=== PATIENT | female | born 1960 ===

== ENCOUNTER 2025-04-28 11:14 | Outpatient (AMB) | payer MEDICAID, SELFPAY | END 2025-04-28 14:59 | disposition home or self-care (01) | LOC: HO.HMGAL 11:14 | PROVIDERS: PCP Internal Medicine; Visit Provider Registered Nurse Emergency | DX: J30.89 Other allergic rhinitis (principal) | CPT/HCPCS: 95117; 95165 ==

== ENCOUNTER 2025-05-26 11:10 | Outpatient (AMB) | payer MEDICARE, SELFPAY ==
--- OUTSIDE RECORDS SUMMARY | 2025-05-26 13:49 | XMS_ITS | Clinical Summary ---
Author Organization [employer] Address [address] [facility] 7 [place] [address] Care Team Providers Care Merchandise Adjustment Clerk Name Role Phone Jaqueline Bro Unavailable Unavailable Encounters Date Type Department Care Team Description 04/18/[address] [facility] Case Management [address] [place] [address] Jaqueline Bro 04/17/2025 Telephone [facility] [address] [place] [address] Jaqueline Bro 04/15/2025 Telephone [facility] [address] [place] [address] Jaqueline Bro 03/25/[address] [facility] Case Management [address] [place] [address] Jaqueline Bro from Last 3 Months Social History Tobacco Use Types Packs/Day Years Used Date Smoking Tobacco: Never Assessed Comments Unknown Sex and Gender Information Value Date Recorded Sex Assigned at Not on file Legal Sex Female 8:39 PM EDT Gender Identity Not on file Sexual Orientation Not on file Plan of Treatment Health Maintenance Due Date Last Done Comments CT Colonography 1960 Colonoscopy 1960 Colorectal Cancer Screening 1960 Depression Screening 1960 FIT DNA/Cologuard 1960 FIT 1960 FOBT 1960 Sigmoidoscopy 1960 Alcohol/Substance Use Screening 1972 Tobacco Screening 1972 DTaP/Tdap/Td Vaccines (1 - Tdap) 1979 Pap Smear 1981 Cervical Cancer Screening 1990 HPV/Cotest 1990 Mammogram 2000 Pneumococcal Vaccine: 50+ Ye ars (1 of 1 - PCV) 2010 Zoster Vaccines (1 of 2) 2010 COVID-19 Vaccine (1 - 2023-2 5 season) 2025 Influenza Vaccine (#1) 2025 RSV Patients and Pa tients Aged 60 years or older (1 - 1-dose 75+ series) 2035 HIB Vaccines Aged Out No longer eligi ble based on patient's age to complete this topic HPV Vaccines Aged Out No longer eligi ble based on patient's age to complete this topic Hepatitis A Vaccines Aged Out No long er eligible based on patient's age to complete this topic Hepatitis B Vaccines Aged Out No long er eligible based on patient's age to complete this topic IPV Vaccines Aged Out No longer eligi ble based on patient's age to complete this topic Meningococcal B Vaccine Aged Out No l onger eligible based on patient's age to complete this topic Meningococcal Vaccine Aged Out No nasima [place] eligible based on patient's age to complete this topic RSV under 20 months Aged Out No longe r eligible based on patient's age to complete this topic Rotavirus Vaccines Aged Out No longer eligible based on patient's age to complete this topic Care Teams Merchandise Adjustment Clerk Relationship Specialty Start Date End Date Jaqueline Bro Health Navigator 07/24/24
== END 2025-05-26 11:34 | disposition home or self-care (01) ==
LOC: HO.HMGAL 11:10
PROVIDERS: PCP Internal Medicine; Visit Provider Registered Nurse Emergency
DX: J30.89 Other allergic rhinitis (principal)
CPT/HCPCS: 95117; 95165

== ENCOUNTER 2025-06-23 09:40 | Outpatient (AMB) | payer MEDICARE, SELFPAY ==
--- OUTSIDE RECORDS SUMMARY | 2025-06-23 10:49 | XMS_ITS | Clinical Summary ---
Author Organization [employer] Address [address] [facility] [address] [place] [address] Care Team Providers Care Investor Relations Director Name Role Phone Jaqueline Bro Unavailable Unavailable Encounters Date Type Department Care Team Description 04/18/2025 Patient Outreach [facility] Case Management [address] [place] [address] Jaqueline Bro 04/17/2025 Telephone [employer] [facility] [address] [place] [address] Jaqueline Bro 04/15/2025 Telephone [employer] [facility] [address] [place] [address] Jaqueline Bro 03/25/2025 Patient Outreach [facility] Case Management [address] [place] [address] Jaqueline Bro from Last 3 Months Social [...] age to complete this topic Care Teams Investor Relations Director Relationship Specialty Start Date End Date Jaqueline Bro Health Navigator 07/24/24
== END 2025-06-23 09:40 | disposition home or self-care (01) ==
LOC: HO.HMGAL 09:40
PROVIDERS: PCP Internal Medicine; Visit Provider Registered Nurse Emergency
DX: J30.89 Other allergic rhinitis (principal)
CPT/HCPCS: 95117; 95165

== ENCOUNTER 2025-07-21 09:38 | Outpatient (AMB) | payer MEDICARE, SELFPAY | END 2025-07-21 09:39 | disposition home or self-care (01) | LOC: HO.HMGAL 09:38 | PROVIDERS: PCP Internal Medicine; Visit Provider Registered Nurse Emergency | DX: J30.89 Other allergic rhinitis (principal) | CPT/HCPCS: 95117; 95165 ==

== ENCOUNTER 2025-08-18 10:26 | Outpatient (AMB) | payer MEDICARE, SELFPAY | END 2025-08-18 10:27 | disposition home or self-care (01) | LOC: HO.HMGAL 10:26 | PROVIDERS: PCP Internal Medicine; Visit Provider Registered Nurse Emergency | DX: J30.89 Other allergic rhinitis (principal) | CPT/HCPCS: 95117; 95165 ==